=== PATIENT | male | born 1935 | race Caucasian/White ===

== ENCOUNTER 2018-02-03 19:37 | Emergency (ER) | payer MEDICARE, BC ==
[2018-02-03 20:00] LABS: APPEARANCE CLEAR (CLEAR); BILIRUBIN NEGATIVE (NEGATIVE); COLOR YELLOW (YELLOW); GLUCOSE NEGATIVE (NEGATIVE); KETONE SMALL mg/dL (NEGATIVE); NITRITE NEGATIVE (NEGATIVE); PH 6.5 (5.0-6.0); PROTEIN TRACE mg/dL (NEGATIVE); UROBILINOGEN NORMAL (NORMAL)
[2018-02-03 20:02] LABS: EPITHELIAL CELLS RARE /hpf (0-5); RED CELLS - URINE 0-5 /hpf (0-5); WHITE CELLS - URINE OCC /hpf (0-5)
[2018-02-03 20:03] LABS: BACTERIA FEW /hpf (NONE SEEN)
[2018-02-03 20:27] LABS: BASOPHILS 0.1 % (0-2); EOSINOPHILS 0.2 % (0-7); HEMATOCRIT 44.8 % (42.0-54.0); HEMOGLOBIN 15.7 g/dL (13.5-17.5); IMMATURE GRANULOCYTES 0.1 % (0-5); LYMPHOCYTES 4.8 % (15-50); MCH 32.4 pg (26.0-34.0); MCV 92.4 fL (80.0-100.0); MONOCYTES 5.9 % (2-11); NEUTROPHILS 88.9 % (40-80); PLATELET COUNT 122 10x3/uL (130-400); RBC 4.85 10x6/uL (4.20-6.10); RDW 13.4 % (11.5-14.5); WBC 9.9 10x3/uL (4.8-10.8)
[2018-02-03 20:44] LABS: ALBUMIN 3.4 g/dL (3.4-5.0); ALKALINE PHOSPHATASE 72 U/L (46-116); ALT (SGPT) 32 U/L (10-68); BILIRUBIN - TOTAL 0.68 mg/dL (0.2-1.3); CALC OSMOLALITY 279 mosm/kg (275-300); CALCIUM 8.8 mg/dL (8.5-10.1); CARBON DIOXIDE 24.8 mmol/L (21.0-32.0); CHLORIDE - SERUM 104 mmol/L (98-107); GLUCOSE 116 mg/dL (74-106); POTASSIUM - SERUM 3.3 mmol/L (3.5-5.1); PROTEIN - SERUM 7.4 g/dL (6.4-8.2); SODIUM 140 mmol/L (136-145); UREA NITROGEN 13 mg/dL (7-18); eGFR NON AFRICAN AMERICAN 76 mL/min (90-120)
[2018-02-03 20:52] LABS: AMYLASE - SERUM 44 U/L (25-115); CREATINE KINASE 158 UL (21-232); LIPASE 54 U/L (73-393); PRO BNP 798 pg/mL (0-450)
[2018-02-03 20:53] LABS: TROPONIN-I < 0.017 ng/mL (0.000-0.060)
== END 2018-02-03 22:27 | disposition home or self-care (01) ==
LOC: EDBD 19:37 → D.ER 19:37
PROVIDERS: Family Medicine; Nurse Practitioner Family
DX: A08.4 Viral intestinal infection, unspecified (principal); R11.2 Nausea with vomiting, unspecified